=== PATIENT | female | born 1995 | race American Indian/Alaskan Native ===

== ENCOUNTER 2017-07-11 22:17 | Emergency (ER) | payer SELFPAY ==
[2017-07-12 00:18] VITALS: BP 116/60
== END 2017-07-12 00:27 | disposition left against medical advice (07) ==
LOC: ED 22:17
DX: J06.9 Acute upper respiratory infection, unspecified (principal); Z53.21 Procedure and treatment not carried out due to patient leaving prior to being seen by health care provider